=== PATIENT | male | born 1965 | race Hispanic/Latino ===

== ENCOUNTER → 2016-11-10 | Outpatient (CLI) | payer OTHER ==
--- NOTE | 2016-11-10 12:02 | REP ---
RIGHT SHOULDER SERIES: THREE VIEWS. HISTORY: Right shoulder pain. No comparison views. FINDINGS: The right glenohumeral and acromioclavicular joints are normally aligned. Periarticular soft tissues are unremarkable. No erosive changes seen. IMPRESSION: Negative right shoulder views. Signed by Rakesh Dyer MD 11/10/2016 03:59 P
== END ==
LOC: M RAD 10:09
PROVIDERS: ATTEND Surgery
DX: M25.511 Pain in right shoulder (principal)

== ENCOUNTER → 2016-12-19 | Outpatient (CLI) | payer OTHER ==
--- NOTE | 2016-12-19 10:46 | REP ---
Clinical: Pain. Technique: AP, lateral and swimmer's views of the thoracic spine. Findings: Alignment and lordosis maintained. No acute fracture / compression injury or subluxation is appreciated. Minimal age-related changes include subtle anterior spurring/osteophyte formation at multiple levels. Impression: Mild age-related changes. No acute fracture / compression injury or subluxation. Signed by Gwyn Rasheed MD 12/19/2016 10:38 A
--- NOTE | 2016-12-19 10:49 | REP ---
Clinical: Pain . Technique: AP, lateral, bilateral oblique, and coned-down views. Findings: Alignment and lordosis is maintained. The vertebral bodies including transverse process and spinous processes are intact and normal. There is no evidence for acute fracture / compression injury or subluxation. No evidence for spondylolysis or spondylolisthesis. No significant degenerative change is noted. Impression: Normal lumbosacral spine radiograph series. Signed by Gwyn Rasheed MD 12/19/2016 10:40 A
== END ==
LOC: M RAD 09:25
PROVIDERS: ATTEND Surgery
DX: R20.2 Paresthesia of skin (principal)

== ENCOUNTER → 2017-10-02 | Outpatient (REF) | payer OTHER | LOC: M LAB REF 12:36 | DX: S91.301A Unspecified open wound, right foot, initial encounter (principal) | CPT/HCPCS: 87186 ==

== ENCOUNTER → 2017-10-08 | Outpatient (CLI) | payer OTHER | LOC: M RAD 08:49 | DX: M25.571 Pain in right ankle and joints of right foot (principal) ==

== ENCOUNTER → 2017-10-20 | Outpatient (CLI) | payer OTHER | LOC: M RAD 09:00 | DX: M86.171 Other acute osteomyelitis, right ankle and foot (principal) | CPT/HCPCS: 73700 ==